=== PATIENT | female | born 1940 ===

== ENCOUNTER 2019-02-26 11:59 | Emergency (ER) | payer OTHER ==
[~2019-02-26] VITALS: Ht 154.9 cm; Wt 53.5 kg
[2019-02-26] MEDS ORDERED: LOSARTAN POTASS50 MG (12:12)
[2019-02-26] MEDS ORDERED: TIROSINT50 MCG (12:13)
[2019-02-26] MEDS ORDERED: NORVASC2.5 MG (12:13)
[2019-02-26] MEDS ORDERED: ELIQUIS5 MG (12:13)
[2019-02-26] MEDS ORDERED: LIPITOR40 MG (12:14)
[2019-02-26] MEDS ORDERED: CALTRATE 600 +1 EACH (12:15)
[2019-02-26] MEDS ORDERED: [UNRECOGNIZED DRUG - OTHER] (12:15)
== END 2019-02-26 18:51 | disposition home or self-care (01) ==
LOC: ER 11:59
DX: M62.830 Muscle spasm of back (principal); M54.5 Low back pain; K59.09 Other constipation

== ENCOUNTER 2021-05-27 08:37 | Emergency (ER) | payer OTHER ==
[~2021-05-27] VITALS: Ht 154.9 cm; Wt 53.5 kg
[~2021-05-27 08:37] MED LIST: CALTRATE 600 +1 EACH; ELIQUIS5 MG; LIPITOR40 MG; LOSARTAN POTASS50 MG; NORVASC2.5 MG; TIROSINT50 MCG; [UNRECOGNIZED DRUG - OTHER]
[2021-05-27] MEDS ORDERED: SYNTHROID50 MCG PO (08:50)
== END 2021-05-27 16:05 | disposition home or self-care (01) ==
LOC: ER 08:37
DX: G51.0 Bell's palsy (principal)

== ENCOUNTER 2021-11-03 12:07 | Outpatient (CLI) | payer OTHER ==
[~2021-11-03 12:07] MED LIST changes: +SYNTHROID50 MCG PO
== END 2021-11-03 12:16 | disposition home or self-care (01) ==
LOC: TOM 12:07
PROVIDERS: ATTEND Physical Medicine & Rehabilitation
DX: S00.93XA Contusion of unspecified part of head, initial encounter (principal); W19.XXXA Unspecified fall, initial encounter